=== PATIENT | female | born 1970 | race Caucasian/White ===

== ENCOUNTER 2018-02-05 12:35 | Inpatient (IN) | payer MEDICARE, MEDICAID ==
[~2018-02-05] VITALS: Ht 170.2 cm; Wt 125.1 kg
[~2018-02-05 12:35] MED LIST: ATOR40TA28 PO; DOCU250C91 PO; ESCI20TA PO; LEVO50 PO; MULT-1203 PO; OXYB5 PO; TOPI100T37 PO
[2018-02-05] MEDS ORDERED: ALBU8.5H8 IH (13:10)
[2018-02-05 14:01] LABS: BASOPHILS % (AUTO) 0.7 % (0.0-2.0); EOSINOPHILS % (AUTO) 1.8 % (1.0-6.0); HEMATOCRIT 41.5 % (36-46); LYMPHOCYTES # (AUTO) 2.1 K/uL (1.0-4.8); LYMPHOCYTES % (AUTO) 25.5 % (22.0-44.0); MEAN CORPUSCULAR HEMOGLOBIN 31.5 pg (26.0-34.0); MEAN CORPUSCULAR HGB CONC 33.8 G/dL (31.0-37.0); MEAN CORPUSCULAR VOLUME 93 fL (80-100); MONOCYTES # (AUTO) 0.5 K/uL (0.1-1.0); MONOCYTES % (AUTO) 5.9 % (2.0-9.0); NEUTROPHILS # (AUTO) 5.5 K/uL (1.8-7.7); NEUTROPHILS % (AUTO) 66.1 % (40.0-70.0); PLATELET COUNT (AUTO) 260 K/uL (150-450); RED BLOOD CELL COUNT(AUTO) 4.45 MIL/uL (4.00-5.20); RED CELL DISTRIBUTION WIDTH 13.5 % (11.5-14.5)
[2018-02-05 14:10] LABS: ANION GAP 11 mmol/L (8-16); CALCIUM, TOTAL 8.8 mg/dL (8.8-10.5); CARBON DIOXIDE 21 mmol/L (22-29); CHLORIDE 108 mmol/L (98-107); CREATININE 0.85 mg/dL (0.60-1.30); GLOMERULAR FILTR. RATE CALC > 60 mL/min (>60); GLUCOSE,RANDOM 136 mg/dL (70-110); POTASSIUM 3.9 mmol/L (3.5-5.1); SODIUM SERUM 140 mmol/L (136-145); UREA NITROGEN, BLOOD 11 mg/dL (7-18)
[2018-02-05 14:16] LABS: ALANINE AMINOTRANSFERASE 27 U/L (12-78); ALBUMIN 3.4 g/dL (3.4-5.0); ALKALINE PHOSPHATASE 80 U/L (46-116); ASPARTATE AMINOTRANSFERASE 15 U/L (15-37); BILIRUBIN,TOTAL 0.3 mg/dL (0.1-1.0)
[2018-02-05 14:21] LABS: AMPHET/METH SCREEN,URINE NEGATIVE (NEGATIVE); BARBITURATE SCREEN, URINE NEGATIVE (NEGATIVE); BENZODIAZEPINES SCREEN,URINE NEGATIVE (NEGATIVE); CANNABINOID SCREEN,URINE NEGATIVE (NEGATIVE); COCAINE SCREEN,URINE NEGATIVE (NEGATIVE); METHADONE SCREEN, URINE NEGATIVE (NEGATIVE); OPIATE SCREEN,URINE NEGATIVE (NEGATIVE)
[2018-02-05 14:24] LABS: ACETAMINOPHEN < 2 mcg/mL (10-30); SALICYLATE 0.9 mg/dL (2.8-20.0)
[2018-02-05 14:24] LABS: PHENCYCLIDINE SCREEN,URINE NEGATIVE (NEGATIVE)
[2018-02-05 14:27] LABS: APPEARANCE,URINE CLOUDY (CLEAR); BILIRUBIN,URINE NEGATIVE (NEGATIVE); GLUCOSE, URINE (UA) NEGATIVE (NEGATIVE); KETONES,URINE NEGATIVE (NEGATIVE); LEUKOCYTE ESTERASE ,URINE NEGATIVE (NEGATIVE); NITRATE,URINE NEGATIVE (NEGATIVE); OCCULT BLOOD,URINE NEGATIVE (NEGATIVE); PH,URINE 6.5 (5.0-8.0); PROTEIN,URINE NEGATIVE (NEGATIVE); UROBILINOGEN,URINE 0.2 mg/dL (<=1.0)
[2018-02-05 14:29] LABS: RBC,URINE None Seen /HPF (0-2)
[2018-02-05 14:30] LABS: BACTERIA,URINE Few /HPF (None Seen); SQUAMOUS EPITHELIAL CELL,UR Few /LPF (None Seen)
[2018-02-05 14:31] LABS: WBC,URINE 0-2 /HPF (0-5)
[2018-02-05 14:32] LABS: AMORPHOUS SEDIMENT,UR Few /LPF (None Seen)
[2018-02-05] MEDS ORDERED: LORazepam 2 MG TABLET PO PRN (17:45)
[2018-02-05] MEDS ORDERED: HALOPERIDOL 5 MG TABLET PO PRN (17:45)
[2018-02-05] MEDS ORDERED: ACETAMINOPHEN 325 MG TABLET PO PRN (18:00)
[2018-02-05 21:46] VITALS: BP 150/87
[2018-02-05] MEDS: IBUPROFEN 400 MG TABLET PO PRN (21:46)
[2018-02-05] MEDS ORDERED: MAGNESIUM HYDROXIDE SUSPENSION 30 ML UDCUP PO PRN (22:00)
[2018-02-05] MEDS ORDERED: CloNIDine HCL 0.1 MG TABLET PO PRN (22:00)
[2018-02-05] MEDS ORDERED: GuaiFENesin/D-METHORPHAN [SUGAR-FREE] 200-20MG/10 ML SYRUP UDCUP PO PRN (22:00)
[2018-02-05] MEDS ORDERED: PETROLATUM,WHITE 71 GM JELLY TP PRN (22:00)
[2018-02-05] MEDS ORDERED: LOPERAMIDE HCL 2 MG CAPSULE PO PRN (22:00)
[2018-02-05] MEDS ORDERED: MAG HYDROX/AL HYDROX/SIMETH ES 30 ML SUSPENSION UDCUP PO PRN (22:00)
[2018-02-05] MEDS ORDERED: NICOTINE 14 MG/24 HOUR PATCH TD PRN (22:00)
[2018-02-05] MEDS ORDERED: ONDANSETRON HCL 4 MG TABLET PO PRN (22:00)
[2018-02-05] MEDS ORDERED: ALBUTEROL SULFATE HFA 90 MCG/PUFF 8 GM INHALER IH PRN (22:00)
[2018-02-05] MEDS ORDERED: DOCUSATE SODIUM 100 MG CAPSULE PO PRN (22:00)
[2018-02-06 05:45] VITALS: BP 116/64
[2018-02-06] MEDS: IBUPROFEN 400 MG TABLET PO PRN (05:49)
[2018-02-06] MEDS: LEVOTHYROXINE SODIUM 50 MCG TABLET PO SCH (07:18)
[2018-02-06 07:19] LABS: BASOPHILS % (AUTO) 0.6 % (0.0-2.0); EOSINOPHILS % (AUTO) 2.5 % (1.0-6.0); HEMATOCRIT 40.8 % (36-46); LYMPHOCYTES # (AUTO) 1.8 K/uL (1.0-4.8); LYMPHOCYTES % (AUTO) 24.7 % (22.0-44.0); MEAN CORPUSCULAR HEMOGLOBIN 32.3 pg (26.0-34.0); MEAN CORPUSCULAR HGB CONC 34.3 G/dL (31.0-37.0); MEAN CORPUSCULAR VOLUME 94 fL (80-100); MONOCYTES # (AUTO) 0.4 K/uL (0.1-1.0); MONOCYTES % (AUTO) 5.3 % (2.0-9.0); NEUTROPHILS # (AUTO) 4.9 K/uL (1.8-7.7); NEUTROPHILS % (AUTO) 66.9 % (40.0-70.0); PLATELET COUNT (AUTO) 217 K/uL (150-450); RED BLOOD CELL COUNT(AUTO) 4.32 MIL/uL (4.00-5.20)
[2018-02-06 07:50] LABS: HEMOGLOBIN A1C 5.5 % (4.5-6.2)
[2018-02-06 07:56] LABS: ALANINE AMINOTRANSFERASE 31 U/L (12-78); ALBUMIN 3.3 g/dL (3.4-5.0); ALKALINE PHOSPHATASE 75 U/L (46-116); ANION GAP 10 mmol/L (8-16); ASPARTATE AMINOTRANSFERASE 17 U/L (15-37); BILIRUBIN,TOTAL 0.4 mg/dL (0.1-1.0); CALCIUM, TOTAL 8.8 mg/dL (8.8-10.5); CARBON DIOXIDE 23 mmol/L (22-29); CHLORIDE 106 mmol/L (98-107); CHOL/HDL RATIO 3.2 (3.9-5.7); CHOLESTEROL 127 mg/dL (131-200); CREATININE 0.82 mg/dL (0.60-1.30); GLOMERULAR FILTR. RATE CALC > 60 mL/min (>60); GLUCOSE,RANDOM 105 mg/dL (70-110); HDL CHOLESTEROL 40 mg/dL (40-60); LDL CHOL (CALC.) 62 mg/dL (0-130); POTASSIUM 3.7 mmol/L (3.5-5.1); SODIUM SERUM 139 mmol/L (136-145); THYROID STIMULATING HORMONE 0.91 uIU/mL (0.36-3.74); TOTAL PROTEIN, SERUM 6.7 g/dL (6.4-8.2); TRIGLYCERIDES 123 mg/dL (15-150); UREA NITROGEN, BLOOD 11 mg/dL (7-18)
[2018-02-06 08:09] VITALS: BP 119/73
[2018-02-06] MEDS: MULTIVITAMINS, THERAPEUTIC TABLET PO SCH (08:20)
[2018-02-06] MEDS: OXYBUTYNIN CHLORIDE 5 MG TABLET PO SCH ×2 (08:20→16:35)
[2018-02-06 17:26] VITALS: BP 113/54
[2018-02-06] MEDS: QUEtiapine FUMARATE 100 MG TABLET PO SCH (20:04)
[2018-02-06] MEDS: ZOLPIDEM TARTRATE 10 MG TABLET PO PRN (20:04)
[2018-02-06] MEDS: ATORVASTATIN CALCIUM 40 MG TABLET PO SCH (20:04)
[2018-02-07] MEDS: LEVOTHYROXINE SODIUM 50 MCG TABLET PO SCH (06:31)
[2018-02-07] MEDS: ESCITALOPRAM OXALATE 20 MG TABLET PO SCH (08:16)
[2018-02-07] MEDS: OXYBUTYNIN CHLORIDE 5 MG TABLET PO SCH ×2 (08:16→16:30)
[2018-02-07] MEDS: MULTIVITAMINS, THERAPEUTIC TABLET PO SCH (08:16)
[2018-02-07 08:30] VITALS: BP 116/77
[2018-02-07] MEDS: IBUPROFEN 400 MG TABLET PO PRN (16:52)
[2018-02-07 16:53] VITALS: BP 147/86
[2018-02-07] MEDS: QUEtiapine FUMARATE 100 MG TABLET PO SCH (20:14)
[2018-02-07] MEDS: ATORVASTATIN CALCIUM 40 MG TABLET PO SCH (20:14)
[2018-02-07] MEDS: ZOLPIDEM TARTRATE 10 MG TABLET PO PRN (20:17)
[2018-02-08] MEDS: LEVOTHYROXINE SODIUM 50 MCG TABLET PO SCH (06:31)
[2018-02-08 08:05] VITALS: BP 138/73
[2018-02-08] MEDS: OXYBUTYNIN CHLORIDE 5 MG TABLET PO SCH (08:11)
[2018-02-08] MEDS: MULTIVITAMINS, THERAPEUTIC TABLET PO SCH (08:11)
[2018-02-08] MEDS: ESCITALOPRAM OXALATE 20 MG TABLET PO SCH (08:11)
[2018-02-08] MEDS ORDERED: QUET100T PO (15:02)
== END 2018-02-08 18:00 | disposition home or self-care (01) | DRG 885 ==
LOC: EMS 12:36 → 3EX 19:00
PROVIDERS: ADMIT Psychiatry & Neurology Psychiatry; ATTEND Psychiatry & Neurology Psychiatry
DX: F33.2 Major depressive disorder, recurrent severe without psychotic features (principal); G40.909 Epilepsy, unspecified, not intractable, without status epilepticus; J45.909 Unspecified asthma, uncomplicated; M19.90 Unspecified osteoarthritis, unspecified site; M54.9 Dorsalgia, unspecified; G89.29 Other chronic pain; F60.3 Borderline personality disorder; E78.5 Hyperlipidemia, unspecified; R32 Unspecified urinary incontinence; T50.902A Poisoning by unspecified drugs, medicaments and biological substances, intentional self-harm, initial encounter; F99 Mental disorder, not otherwise specified; Z88.8 Allergy status to other drugs, medicaments and biological substances; Z91.5 Personal history of self-harm
CPT/HCPCS: 83036; 84443; 93005; 99285; G0480; G0481

== ENCOUNTER 2024-04-01 20:17 | Emergency (ER) | payer MEDICARE, OTHER ==
[~2024-04-01] VITALS: Ht 170.2 cm; Wt 62.7 kg
[~2024-04-01 20:17] MED LIST changes: -DOCU250C91 PO; -ESCI20TA PO; +ESCI20TA87 PO; +IBUP-1493 PO; +LEVE250T81 PO; -OXYB5 PO; +OXYB5TAB20 PO; -TOPI100T37 PO
[2024-04-01 20:42] VITALS: TEMP 98
[2024-04-01 21:22] LABS: BASOPHILS % (AUTO) 0.4 % (0.0-2.0); EOSINOPHILS % (AUTO) 2.4 % (1.0-6.0); HEMATOCRIT 34.9 % (36-46); HEMOGLOBIN 11.6 g/dL (12.0-16.0); LYMPHOCYTES # (AUTO) 2.2 K/uL (1.0-4.8); LYMPHOCYTES % (AUTO) 39.2 % (22.0-44.0); MEAN CORPUSCULAR HEMOGLOBIN 35.1 pg (26.0-34.0); MEAN CORPUSCULAR HGB CONC 33.2 G/dL (31.0-37.0); MEAN CORPUSCULAR VOLUME 106 fL (80-100); MONOCYTES # (AUTO) 0.3 K/uL (0.1-1.0); MONOCYTES % (AUTO) 6.1 % (2.0-9.0); NEUTROPHILS # (AUTO) 2.9 K/uL (1.8-7.7); NEUTROPHILS % (AUTO) 51.9 % (40.0-70.0); PLATELET COUNT (AUTO) 196 K/uL (150-450); WHITE BLOOD COUNT (AUTO) 5.6 K/uL (4.5-11.0)
[2024-04-01 21:29] LABS: CALCIUM, TOTAL 8.7 mg/dL (8.8-10.5); CREATININE 0.97 mg/dL (0.60-1.30); POTASSIUM 3.7 mmol/L (3.5-5.1)
[2024-04-01 21:32] LABS: PROTHROMBIN TIME 10.9 SEC (9.4-11.6)
[2024-04-01 23:01] VITALS: BP 110/68; PULSE 64; RESP 18; O2SAT 98
[2024-04-01 23:14] LABS: ALBUMIN 3.6 g/dL (3.4-5.0); BILIRUBIN,DIRECT 0.1 mg/dL (0.00-0.20); BILIRUBIN,TOTAL 0.3 mg/dL (0.1-1.0); TOTAL PROTEIN, SERUM 6.4 g/dL (6.4-8.2)
[2024-04-01] MEDS ORDERED: DOCU-385 PO (23:56)
[2024-04-01] MEDS ORDERED: POLY17PO47 PO (23:56)
[2024-04-01] MEDS ORDERED: PHEN28OI9 TP (23:56)
== END 2024-04-02 00:23 | disposition home or self-care (01) ==
LOC: EMS 20:17
DX: K62.5 Hemorrhage of anus and rectum (principal); K64.4 Residual hemorrhoidal skin tags; M19.90 Unspecified osteoarthritis, unspecified site; J45.909 Unspecified asthma, uncomplicated; F32.A Depression, unspecified; E03.9 Hypothyroidism, unspecified; G40.909 Epilepsy, unspecified, not intractable, without status epilepticus; Z98.51 Tubal ligation status; Z98.890 Other specified postprocedural states
CPT/HCPCS: 80048; 80076; 85025; 85610; 99283